=== PATIENT | male | born 1990 | race Caucasian/White ===

== ENCOUNTER 2025-02-17 19:37 | Emergency (ER) | payer BC, SELFPAY ==
[2025-02-17 19:45] VITALS: BP 148/86; PULSE 75; RESP 18; TEMP 36.3; O2SAT 97; BMI 27.0
--- NOTE | 2025-02-17 20:22 | ED.EYEPROB ---
HPI - Eye Problem General Date Seen: 02/17/25 Chief complaint: Eye Problems Stated complaint: Left eye scratch, blurry vision Time Seen by Provider: 02/17/25 19:44 Source: patient Mode of arrival: ambulatory Limitations: no limitations History of Present Illness HPI Narrative: Patient is a 34-year-old male presenting to the emergency department for left eye vision changes. States around noon his left eye was scratched by his daughters finger. States she did put a decent amount of pressure into his eye. Since then has been having blurry vision to left eye. Pain has improved but still has some [id number] pain. His biggest concern is the vision has not improved. He does not were contacts. No other previous vision issues. No other concerns noted Related Data Home Medications ?Medication ?Instructions ?Recorded ?Confirmed No Known Home Medications 02/17/25 02/17/25 Allergies Allergy/AdvReac Type Severity Reaction Status Date / Time No Known Drug Allergies Allergy Verified 02/17/25 19:48 Review of Systems Narrative: Pertinent systems reviewed and were negative unless stated in HPI Exam Narrative: Exam Narrative: Const: Well-nourished, Well-developed, in mild distress Eyes: PERRL, no conjunctival injection, and symmetrical lids. Small abrasion seen over the iris on fluorescein exam. Ocular ultrasound showed no acute abnormalities HENT: Atraumatic external nose and ears. Moist mucous membranes. MSK:Extremities w/o deformity, Normal Active ROM Skin: Warm, Dry. No rashes or lesions. Neuro: Normal Muscle tone, No focal neurological deficits. Psych: Awake, Alert, & Oriented x3. Appropriate mood and affect. Const: Vital Signs, click to edit/add: Vital Signs - 24 hr 02/17/25 19:45 Temperature 97.4 F L Pulse Rate [Pulse Oximeter] 75 Respiratory Rate 18 Blood Pressure [Ri ght Upper Arm] 148/86 H Pulse Oximetry 97 Oxygen Delivery Me thod Room Air Course Vital Signs Vital signs: Initial Vital Signs Temperature 97.4 F L 02/17/25 19:45 Temperature Source Temporal Artery Scan 02/17/25 19:45 Pulse Rate 75 02/17/25 19:45 Respiratory Rate 18 02/17/25 19:45 Blood Pressure 148/86 H 02/17/25 19:45 Blood Pressure Mean 106 H 02/17/25 19:45 Blood Pressure Position Sitting 02/17/25 19:45 Pulse Oximetry 97 02/17/25 19:45 Oxygen Delivery Method Room Air 02/17/25 19:45 Vital Signs Temperature 97.4 F L 02/17/25 19:45 Pulse Rate 75 02/17/25 19:45 Respiratory Rate 18 02/17/25 19:45 Blood Pressure 148/86 H 02/17/25 19:45 Pulse Oximetry 97 02/17/25 19:45 Oxygen Delivery Method Room Air 02/17/25 19:45 Temperature 97.4 F L 02/17/25 19:45 Pulse Rate 75 02/17/25 19:45 Respiratory Rate 18 02/17/25 19:45 Blood Pressure 148/86 H 02/17/25 19:45 Pulse Oximetry 97 02/17/25 19:45 Oxygen Delivery Method Room Air 02/17/25 19:45 MDM - Eye Problem MDM Narrative Medical decision making narrative: Patient is a 34-year-old male presenting for blurry vision to his left eye. There is a small corneal abrasion which I will prescribe erythromycin ointment for. He does not were contacts. With the blurry vision though I did do an ocular ultrasound showing no signs of retinal detachment, vitreous detachment, or dislodged lens. Considering the vision loss occurred right after getting hit in the eye seems very unlikely to be a stroke, PRES, or central retinal vessel occlusion. I do believe he should follow up with the local eye clinic if he is still having blurry visions tomorrow. He is agreeable to this plan. He is safe for discharge Discharge Plan Discharge Clinical Impression: Corneal abrasion Qualifiers: Encounter type: initial encounter Laterality: left Qualified Code(s): S05.02XA - Injury of conjunctiva and corneal abrasion without foreign body, left eye, initial encounter Patient Disposition: Home, Self-Care Condition: Stable Instructions: Corneal Abrasion (ED) Additional Instructions: Use erythromycin ointment 4 times a day for the next 3-5 days. If your still having vision changes tomorrow I recommend following up with a local eye clinic. Prescriptions: No Action No Known Home Medications Stand Alone Forms: MyHealth Info Instructions Procedures POC Ultrasound Ocular Anatomical areas examined: left orbit Indication: visual disturbance Exam type: limited ocular ultrasound Findings left eye: normal retinal contour, normal lens, normal vitreous body and EOMI Left eye impressions: normal ocular ultrasound
== END 2025-02-17 20:50 | disposition home or self-care (01) ==
PROVIDERS: Emergency Provider Student in an Organized Health Care Education/Training Program
DX: S05.02XA Injury of conjunctiva and corneal abrasion without foreign body, left eye, initial encounter (principal)
CPT/HCPCS: 76512; 99283; A9270